=== PATIENT | female | born 1980 | race Caucasian/White ===

== ENCOUNTER 2019-12-20 21:06 | Emergency (ER) | payer OTHER, SELFPAY ==
[2019-12-20 21:18] VITALS: BP 142/86; PULSE 83; RESP 17; TEMP 36.7; O2SAT 98
--- NOTE | 2019-12-20 22:28 | ED.BACK ---
HPI - Back Pain/Injury General Chief Complaint: Back Pain/Injury Stated Complaint: left lower back pain Time Seen by Provider: 12/20/19 21:54 Source: patient Mode of arrival: ambulatory Limitations: no limitations History of Present Illness HPI Narrative: This patient is a 39 year old female who presents for evaluation of left lower back pain . She woke up this morning with this pain. She reports her pain worsens when she walks or bends. She also reports this pain intermittently radiates down her leg. She reports intermittent numbness and tingling. She denies lower extremity weakness. She denies abdominal pain, nausea, vomiting, urinary retention or incontinence. She took ibuprofen 400 mg hours ago. Her pain sitting is 3/10 MD elicited complaint: back pain Pertinent past history: prior back pain Related Data Home Medications Medication Instructions Recorded Confirmed lorazepam [Ativan] 2 mg PO DAILY PRN 12/20/19 12/20/19 omeprazole 20 mg PO DAILY 12/20/19 12/20/19 Allergies Allergy/AdvReac Type Severity Reaction Status Date / Time sulfamethoxazole Allergy Hives Verified 12/20/19 21:37 [From Bactrim] trimethoprim [From Bactrim] Allergy Hives Verified 12/20/19 21:37 Review of Systems Review of Systems: All systems reviewed & are unremarkable except as noted in HPI and below Constitutional: Constitutional: Denies chills and Denies fever(s) Gastrointestinal: Gastrointestinal: Denies abdominal pain, Denies nausea and Denies vomiting Genitourinary: Genitourinary: Denies hematuria, Denies nocturia and Denies vaginal discharge Musculoskeletal: Musculoskeletal: Reports back pain and Reports muscle cramps PMFSH Past Medical History Medical History (Updated 12/21/19 @ 00:07 by Yaneth Edwards MD) Multiple sclerosis Surgical History Surgical History (Updated 12/20/19 @ 22:33 by Yaneth Edwards MD) Hx of tonsillectomy Social History Social History Gender identity (if verbalized by the patient): Female Exam Narrative: Exam Narrative: GENERAL: Well-appearing, well-nourished, and in no acute distress. HEAD: Normocephalic, atraumatic EYES: PERRLA and EOMI, conjunctiva clear without discharge THROAT:Mucous membranes moist, NECK: Supple, without lymphadenopathy or mass RESPIRATORY: No respiratory distress, Airway patent, Respirations non-labored, Clear to auscultation without rales, rhonchi or wheeze HEART: Regular rate and rhythm. No murmur heard. Normal peripheral pulses. ABDOMEN: Soft, nontender, nondistended, normal active bowel sounds. No masses. No rebound or guarding, No organomegaly. EXTREMITIES: No edema, normal strength with full range of motion. SKIN: Warm, dry, normal color without rash NEURO: Alert and oriented x3. CN 2-12 grossly intact. No focal deficits. PSYCH: Normal mood and affect. Course Reevaluation(s) Reevaluation #1: PAtient has no neuro deficits, no leg weakness, no sensory deficity, no urinary retention or in continence Date: 12/21/19 Time: 00:06 Vital Signs Vital signs: Vital Signs Temperature 98.1 F 12/20/19 21:18 Pulse Rate 83 12/20/19 21:18 Respiratory Rate 17 12/20/19 21:18 Blood Pressure 142/86 H 12/20/19 21:18 Pulse Oximetry 98 12/20/19 21:18 Temperature 98.1 F 12/20/19 21:18 Pulse Rate 68 12/20/19 23:51 Respiratory Rate 16 12/20/19 23:51 Blood Pressure 129/74 12/20/19 23:51 Pulse Oximetry 98 12/20/19 23:51 MDM - Back Pain/Injury Lab Data Labs: Lab Results 12/20/19 Range/Units 22:33 Urine Color Yellow (Yellow) Urine Appearance Clear (Clear) Urine pH 6.0 (5.0-9.0) Ur Specific [place] 1.016 (1.001-1.035) Urine Protein Negative (Negative) mg/dL Urine Glucose (UA) Negative (Negative) mg/dL Urine Ketones Negative (Negative) mg/dL Ur Blood (Man) Negative (Negative) Urine Nitrate Negative (Negative) Urine Bilirubin Negative (Negative) Urine Urobilinogen N
[2019-12-20] MEDS: diazePAM 5 MG TABLET PO (22:29)
[2019-12-20] MEDS: KETOROLAC (*BKC) 60 MG/2 ML VIAL IM (22:29)
[2019-12-20] MEDS: methylPREDNISolone SOD SUCC 125 MG VIAL IM (22:30)
[2019-12-20 22:46] LABS: Add Urine Microscopic? YES; Appearance Urine Clear (Clear); Bilirubin Urine Negative (Negative); Blood Urine Negative (Negative); Color Urine Yellow (Yellow); Glucose Urine UA Negative (Negative); Ketones Urine Negative (Negative); Leukocyte Esterase Ur Trace LEU/UL (Negative); Nitrate Urine Negative (Negative); Protein Urine Negative (Negative); RBC Urine 0-2 /hpf (0-2); Specific Grav Ur 1.016 (1.001-1.035); Squamous Epithelial Cell Urine Many /hpf (Few); Urobilinogen Urine Negative mg/dL (<2.0); WBC Urine 0-3 /hpf
--- NOTE | 2019-12-20 23:02 | PC.NURSE ---
Report received, assumed care of patient.
[2019-12-20 23:51] VITALS: BP 129/74; PULSE 68; RESP 16; O2SAT 98
== END 2019-12-21 00:17 | disposition home or self-care (01) ==
PROVIDERS: Emergency Provider General Practice; PCP Family Medicine
DX: M54.16 Radiculopathy, lumbar region (principal); G35 Multiple sclerosis
CPT/HCPCS: 81001; 81025; 96372; 99284; A9270; J1885; J2930

== ENCOUNTER 2020-09-04 12:58 | Emergency (ER) | payer MEDICARE, OTHER, SELFPAY ==
[2020-09-04] VITALS (12 sets, daily range): BP systolic 119–145; BP diastolic 78–94; PULSE 63–84; RESP 14–24; TEMP 36.3; O2SAT 96–99
--- NOTE | ~2020-09-04 | CT_ITS ---
EXAMINATION: CTA brain carotid EXAM DATE: 09/04/2020 15:04 INDICATION: Headache, blurred vision. TECHNIQUE: Noncontrast head CT. Spiral CTA of the carotid arteries was performed with intravenous i njection 100 cc of Omnipaque 350. Axial, coronal, sagittal reformatted images reviewed. Additional r eformatted images created on dedicated 3-D workstation. NASCET comparable standard used to assess th e degree of arterial stenosis. Spiral CT angiogram cerebral arteries performed with the same intrave nous injection of contrast. Source images of the brain CTA transferred to dedicated workstation for 3 -D rotational image creation. Coronal, sagittal maximum intensity pixel images also reviewed. The d ose-length product (DLP) for this examination was 1603.54 mGy-cm. The exposure was tailored accordi ng to patient size, and iterative reconstruction (ASIR) was used as additional dose reduction techniq ue. There is no prior study for comparison. FINDINGS: There is no common or internal carotid arterial plaque, 0% stenosis bilaterally. The verteb ral arteries are codominant. Symmetric ophthalmic arteries and superior orbital veins. There is no ca rotid or vertebral basilar arterial dissection or fibromuscular dysplasia. There are no cerebral simeon ry aneurysms. There is symmetric cerebral artery arborization. The sagittal, transverse and sigmoid s inuses enhance normally, no venous sinus thrombosis. Internal cerebral veins also enhance normally. There is no acute intraparenchymal hemorrhage. No evidence of intraparenchymal brain mass lesion. N o evidence of acute infarction. There is no mass effect or midline shift. There is no obstructive hyd rocephalus suspected. There are no extra-axial collections. There are no calvarial acute fractures. IMPRESSION: 1. No acute carotid or intracranial findings. 2. Bilateral carotid 0% stenosis. Reviewed, dictated and finalized at location A.
--- NOTE | ~2020-09-04 | XR_ITS ---
EXAMINATION: XR chest 2V EXAM DATE: 09/04/2020 13:49 INDICATION: Left-sided chest pain, dizziness. Symptoms started today. TECHNIQUE: Frontal and lateral projections of the chest obtained and reviewed. There is no prior aiyana dy for comparison. FINDINGS: The lungs are clear. There are no pleural effusions. The cardiomediastinal silhouette is within normal limits. There is no pneumothorax suspected. The bones and soft tissues are unremarkab le. IMPRESSION: No acute cardiopulmonary findings. Reviewed, dictated and finalized at location A.
--- NOTE | 2020-09-04 13:08 | ECG_ITS ---
Measurements Intervals [place] Rate: 70 P: 30 IA: 144 QRS: 17 QRSD: 96 T: 30 QT: 406 QTc: 441 Interpretive Statements SINUS RHYTHM BASELINE ARTIFACT- II, III, AVR, AVF, V2-V6 NORMAL ECG Electronically Signed On 09-04-2020 17:18:15 CDT by Denver Grossman D.O.
[2020-09-04 13:33] LABS: Basophils Percent Auto 0.4 % (0.2-1.2); Eosinophils Absolute Auto 0.3 K/mm3 (0-0.3); Eosinophils Percent Auto 2.7 % (0-4.4); Hematocrit 43.9 % (37.0-47.0); Hemoglobin 15.3 g/dL (12.0-15.0); Immature Granulocyte Absolute 0.02 K/mm3 (0.00-0.031); Immature Granulocyte Percent A 0.2 % (0-0.5); Lymphocytes Absolute Auto 3.72 K/mm3 (0.9-3.2); Lymphocytes Percent Auto 39.8 % (18.3-44.2); Mean Corpuscular HGB Conc 34.9 g/dl (32-36); Mean Corpuscular Hemoglobin 29.5 pg (26-34); Mean Corpuscular Volume 84.6 fl (80-100); Mean Platelet Volume 10.2 fl (7.4-10.4); Monocytes Absolute Auto 0.5 K/mm3 (0.1-0.6); Monocytes Percent Auto 5.2 % (2.6-8.5); Neutrophils Absolute Auto 4.8 K/mm3 (1.3-6.7); Neutrophils Percent Auto 51.7 % (45.5-73.1); Platelet Count Result 263 k/mm3 (150-375); Red Blood Count 5.19 M/mm3 (4.2-5.4); White Blood Count 9.3 K/mm3 (4.5-10.0)
[2020-09-04 13:44] LABS: Anion Gap 7 mmol/L (8-16); Blood Urea Nitrogen 8 mg/dL (7-17); Calcium 9.4 mg/dL (8.4-10.2); Carbon Dioxide 27 mmol/L (22-30); Chloride 106 mmol/L (98-107); Estimated CRCL calculation 117 ml/min; Estimated Glomerular Filt Rate > 60; Glucose 127 mg/dL (65-105); INR 0.8; Potassium 3.7 mmol/L (3.4-5.0); Prothrombin Time 11.7 Seconds (11.1-14.7); Sodium 140 mmol/L (137-145)
[2020-09-04 13:45] LABS: Partial Thromboplastin Time 29.2 SECONDS (22.3-36.8)
[2020-09-04 13:54] LABS: Troponin I < 0.012 ng/mL (0.000-0.034)
[2020-09-04] MEDS: SODIUM CHLORIDE 0.9% IV 1,000 ML 999 ML IV CONT (14:12)
[2020-09-04] MEDS: METOCLOPRAMIDE HCL INJ 10 MG/2 ML VIAL IV PUSH (14:12)
[2020-09-04] MEDS: diphenhydrAMINE HCl INJ 50 MG/ML VIAL 25 MG IV PUSH (14:14)
--- NOTE | 2020-09-04 14:25 | ED.GENADULT ---
HPI - General Adult General Chief complaint: Chest Pain Stated complaint: left chest pressure and left eye trouble Time Seen by Provider: 09/04/20 13:26 Source: patient Mode of arrival: EMS Limitations: no limitations History of Present Illness HPI narrative: This patient is a 40 year old female with history of Multiple sclerosis who presents for evaluation left axillary pain and headache. Patient states she developed sudden onset of left axilla pressure, and left eye visual defect. She then developed left frontal headache and left midback pain. She describes her left axilla pain as pressure. She also describes her headache as if someone is pulling on left side of her headache. She states she feels as if part of her vision is missing on left lower with flashes of light. She denies focal weakness but she reports left leg numbness that has been present for 1 month. She states she has not had a relapse of MS in 5 years. Related Data Home Medications Medication Instructions Recorded Confirmed lorazepam [Ativan] 2 mg PO DAILY PRN 12/20/19 12/20/19 omeprazole 20 mg PO DAILY 12/20/19 12/20/19 Allergies Allergy/AdvReac Type Severity Reaction Status Date / Time sulfamethoxazole Allergy Hives Verified 12/20/19 21:37 [From Bactrim] trimethoprim [From Bactrim] Allergy Hives Verified 12/20/19 21:37 Review of Systems Review of Systems: All systems reviewed & are unremarkable except as noted in HPI and below Constitutional: Constitutional: Denies chills and Denies fever(s) ENT: Denies sore throat Comments: left eye blurred vision Cardiovascular: Cardiovascular: Reports chest pain Respiratory: Respiratory: Denies cough and Denies dyspnea Gastrointestinal: Gastrointestinal: Denies abdominal pain, Denies diarrhea, Denies nausea and Denies vomiting Musculoskeletal: Musculoskeletal: Reports back pain Neurologic: Reports headache(s), Denies focal weakness and Reports numbness (left lower leg) [facility] Past Medical History Medical History (Updated 09/04/20 @ 16:39 by Yaneth Edwards MD) Multiple sclerosis Surgical History Surgical History (Updated 12/20/19 @ 22:33 by Yaneth Edwards MD) Hx of tonsillectomy Social History Social History Gender identity (if verbalized by the patient): Female Exam Const: General: no acute distress and alert Orientation/consciousness: patient oriented x3 HENMT: Head: normocephalic and atraumatic Ears: TM's normal bilaterally Face and sinus: sinuses nontender and face symmetric Mouth: Yes Normal oral and palatal mucosa present, Yes lip normal, Yes oropharynx normal and Yes moist mucous membranes Eyes: Conjunctivae: conjunctivae normal Pupils: Equal, round and reactive pupils present EOM: EOMs intact bilaterally Other: visual acuity- 20/40 right 20/80 left, visual field defect left lower; IOP 21 right, 23 left Chest: Chest palpation & inspection: normal inspection of the chest Resp: Effort & Inspection: normal respiratory effort and no retractions Auscultation: clear to auscultation bilaterally Cardio: Rate: regular rate Rhythm: regular rhythm Heart sounds: no murmurs GI: GI Palp: Yes Soft to palpation, No Tenderness to palpation present (GI) and No Guarding due to palpation present (GI) Auscultation: normal bowel sounds Skin: General skin exam: normal color Rashes: no rashes Neuro: General: patient oriented x3, moves all extremities, no focal motor deficits and CN's II-XI intact bilaterally Cranial nerves: Yes Nystagmus not present Speech: normal speech Psych: Mental Status: mental status grossly normal Affect: normal affect Course Reevaluation(s) Reevaluation #1: PAtient states her headache and chest pain have resolved. She still continues to have some left eye blurred vision; I Discussed we do not have ophthalmology available so they are agreeable to possible transfer Date: 09/04/20 Time: 16:07 Consultations Consultation #1: Diony Mercedes
--- NOTE | 2020-09-04 14:48 | PC.NURSE ---
Pt states headache is gone, and she feels sleepy. Pt states is post-menopausal x5 yrs due to her MS. CT made aware.
--- NOTE | 2020-09-04 14:57 | PC.NURSE ---
Pt to CT via stretcher.
--- NOTE | 2020-09-04 16:03 | PC.NURSE ---
Preparing to transfer patient to [facility] for opthalmology.
--- NOTE | 2020-09-04 16:42 | PC.NURSE ---
[facility] declined transfer to [facility] accepted transfer to [facility] ETA 1.5hr Trip # [phone]
[2020-09-04 17:03] LABS: Troponin I < 0.012 ng/mL (0.000-0.034)
--- NOTE | 2020-09-04 17:36 | PC.NURSE ---
[facility] updated ETA [id number]
--- NOTE | 2020-09-04 18:00 | PC.NURSE ---
Assumed care of pt. at this time. Report from BRODERICK Abraham
== END 2020-09-04 18:15 | disposition short-term general hospital (02) ==
PROVIDERS: Emergency Provider General Practice; PCP Family Medicine
DX: R51.9 Headache, unspecified (principal); R07.89 Other chest pain; H54.7 Unspecified visual loss; G35 Multiple sclerosis
CPT/HCPCS: 36415; 70496; 70498; 71046; 80048; 84484; 85025; 85610; 85730; 93005; 96361; 96374; 96375; 99284; 99285; J1200; J2765; J7030; Q9967

== ENCOUNTER 2023-03-03 17:31 | Emergency (ER) | payer MEDICARE, OTHER, SELFPAY ==
[2023-03-03 17:46] VITALS: BP 140/90; PULSE 76; RESP 16; TEMP 36.6; O2SAT 98
--- NOTE | 2023-03-03 18:07 | ED.URI ---
HPI - URI/Sore Throat General Chief Complaint: Upper Respiratory Infection Stated Complaint: COUGH/SORE THROAT/COLD SYMPTOMS Time Seen by Provider: 03/03/23 18:07 Source: patient, RN notes reviewed and old records reviewed Mode of arrival: ambulatory Limitations: no limitations History of Present Illness HPI Narrative: 42-year-old female presents to the [facility] with complaints of cold symptoms, cough. States been going on for 1 week. Has tested negative her doctor's office for COVID x2 Has taken DayQuil Related Data Home Medications Medication Instructions Recorded Confirmed lorazepam 2 mg tablet (Ativan) 2 mg PO DAILY PRN Anxiety 12/20/19 03/03/23 omeprazole 20 mg tablet,delayed 20 mg PO DAILY 12/20/19 03/03/23 release ergocalciferol (vitamin D2) 1,250 1,250 mcg PO WEEKLY 03/03/23 03/03/23 mcg (50,000 unit) capsule rosuvastatin 10 mg tablet 10 mg PO DAILY 03/03/23 03/03/23 Allergies Allergy/AdvReac Type Severity Reaction Status Date / Time sulfamethoxazole Allergy Hives Verified 03/03/23 17:42 [From Bactrim] trimethoprim [From Bactrim] Allergy Hives Verified 03/03/23 17:42 Review of Systems Review of Systems: All systems reviewed & are unremarkable except as noted in HPI and below Constitutional: Constitutional: Reports no additional constitutional complaints Eyes: Eyes: Reports no additional eye complaints ENT: Reports as per HPI Cardiovascular: Cardiovascular: Reports no additional cardiovascular complaints, Denies chest pain and Denies dyspnea Respiratory: Respiratory: Reports as per HPI, Denies chest congestion, Reports cough and Denies dyspnea Gastrointestinal: Gastrointestinal: Reports no additional gastrointestinal complaints, Denies abdominal pain, Denies nausea and Denies vomiting Musculoskeletal: Musculoskeletal: Reports no additional musculoskeletal complaints Integumentary/Breasts: Skin/Breast: Reports system reviewed and no additional complaints, except as docu Neurologic: Reports system reviewed and no additional complaints, except as documented Psychiatric: Psychiatric: Reports no additional psychiatric complaints Allergic/Immunologic: Allergic/Immunologic: Reports no additional allergic/immunologic complaints PMFSH Past Medical History Medical History Multiple sclerosis Surgical History Surgical History Hx of tonsillectomy Social History Social History Gender identity (if verbalized by the patient): Female Comments At the time of my signature, I reviewed and agree with the nursing past medical, surgical, social, and family history. There is no relevant family history pertinent to the patient complaint. Exam Const: General: cooperative, healthy appearing, comfortable, no acute distress, well developed, alert and well nourished Nutritional Appearance: well nourished and obese Orientation/consciousness: patient oriented x3 Limitations: no limitations HENMT: Head: normal to inspection Ears: hearing grossly normal bilaterally, external ears normal, TM's normal bilaterally and EAC's normal Face/Nose/Sinus: Normal external nose present, Normal nares present, Normal nasal mucous membranes and turbinates present, No nasal discharge present, normal facial exam, face symmetric and No ecchymosis Face and sinus: normal facial exam, face symmetric and sinus tenderness frontal and maxillary Mouth: Yes Normal oral and palatal mucosa present, Yes lip normal and Yes moist mucous membranes Throat: posterior oropharynx normal and uvula midline Eyes: General: appearance normal, both eyes and all related structures Alignment and Position: alignment normal Periorbital: periorbital findings normal Pupils: Equal, round and reactive pupils present EOM: EOMs intact bilaterally Neck: Neck: normal visual inspection, full
== END 2023-03-03 18:24 | disposition home or self-care (01) ==
PROVIDERS: Emergency Provider Nurse Practitioner; PCP Family Medicine
DX: J40 Bronchitis, not specified as acute or chronic (principal); J32.9 Chronic sinusitis, unspecified; G35 Multiple sclerosis
CPT/HCPCS: 99213; G0463

== ENCOUNTER 2023-05-19 08:34 | Emergency (ER) | payer MEDICARE, OTHER, MEDICAID, SELFPAY ==
[2023-05-19] VITALS (13 sets, daily range): BP systolic 127–155; BP diastolic 75–98; PULSE 67–89; RESP 13–20; O2SAT 95–99
--- NOTE | ~2023-05-19 | CT_ITS ---
EXAMINATION: CT brain wo con DATE: 05/19/2023 09:25 INDICATION: Headache. TECHNIQUE: Computed tomography (CT) of the head was performed without intravenous contrast. The mA wa s adjusted according to patient size. Iterative reconstruction technique was employed. The dose-lengt h product was 605.33 mGy-cm. COMPARISON: Head CTA 09/04/2020 FINDINGS: There is no intracranial hemorrhage, acute infarction, or abnormal intracranial mass lesion . The ventricles are normal in size. The orbits are normal. There is mild mucosal thickening in the p aranasal sinuses. The mastoid air cells are normal. The orbits are normal. IMPRESSION: 1. Normal brain. Reviewed, dictated and finalized at location A. 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 Normal brain.
--- NOTE | 2023-05-19 09:10 | ED.GENADULT ---
HPI - General Adult General Chief complaint: Recheck/Abnormal Lab/Rx Stated complaint: head pressure/htn Time Seen by Provider: 05/19/23 08:54 History of Present Illness HPI narrative: 43-year-old female presenting to the emergency department for evaluation headache. 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 Patient denies any nausea vomiting chest pain shortness of breath numbness or weakness. Related Data Home Medications Medication Instructions Recorded Confirmed lorazepam 2 mg tablet (Ativan) 2 mg PO DAILY PRN Anxiety 12/20/19 03/03/23 omeprazole 20 mg tablet,delayed 20 mg PO DAILY 12/20/19 03/03/23 release ergocalciferol (vitamin D2) 1,250 1,250 mcg PO WEEKLY 03/03/23 03/03/23 mcg (50,000 unit) capsule rosuvastatin 10 mg tablet 10 mg PO DAILY 03/03/23 03/03/23 Allergies Allergy/AdvReac Type Severity Reaction Status Date / Time sulfamethoxazole Allergy Hives Verified 05/19/23 09:04 [From Bactrim] trimethoprim [From Bactrim] Allergy Hives Verified 05/19/23 09:04 Review of Systems Review of Systems: All systems reviewed & are unremarkable except as noted in HPI and below PMFSH Past Medical History Medical History Multiple sclerosis Surgical History Surgical History Hx of tonsillectomy Social History Social History Gender identity (if verbalized by the patient): Female Exam Narrative: APPEARANCE: Well appearing, no pain, no distress, well-nourished. HEAD: normocephalic, atraumatic. EYES: PERRLA/EOMI, conjunctivae clear. NOSE: Normal no drainage EARS:TMS clear with good light reflex. THROAT: Pharynx clear, no exudate. NECK: Supple. No adenopathy, no masses. RESPIRATORY: Airway patent, respirations nonlabored. Clear to auscultation bilaterally, no rales, rhonchi, wheezing. CARDIOVASCULAR: Regular rate and rhythm without murmurs rubs or gallops. ABDOMINAL: Soft, nontender, nondistended, normal bowel sounds MUSCULOSKELETAL: Moves all extremities. Strength/ROM intact, No edema, No calf tenderness. NEURO: Alert. Cranial nerves II through XII intact. Grossly intact SKIN: Warm, dry. Normal Color Course Course Emergency Course: 43-year-old female present to the ED for headache. Patient had a negative head CT. Patient was afebrile with no leukocytosis patient's hemoglobin 15.2. No significant abnormalities on her CMP. Patient was negative influenza RSV and for COVID. Patient did feel improved with treatment feels back to baseline. Patient did feel improved with treatment and patient was requesting discharge to home. Suspect migraine. Low concern for intracranial abnormality or CVA. Patient family were updated on the results of the workup and diagnosis. All questions concerns were addressed patient was well-appearing at time of discharge. Vital Signs Vital signs: Vital Signs Pulse Rate 86 05/19/23 08:53 Respiratory Rate 13 05/19/23 08:53 Pulse Oximetry 99 05/19/23 08:53 Pulse Rate 67 05/19/23 10:33 Respiratory Rate 20 05/19/23 10:33 Blood Pressure 127/76 05/19/23 10:16 Pulse Oximetry 95 05/19/23 10:33 Medical Decision Making Differential Diagnosis Differential Diagnosis: CVA, TIA, migraine, intracranial bleed, muscle strain Vital Signs Vital Signs: Vital Signs Pulse Rate 86 05/19/23 08:53 Respiratory Rate 13 05/19/23 08:53 Pulse Oximetry 99 05/19/23 08:53 Pulse Rate 67 05/19/23 10:33 Respiratory Rate 20 05/19/23 10:33 Blood Pressure 127/76 05/19/23 10:16 Pulse Oximetry 95 05/19/23 10:33 Lab Data Lab results reviewed: Yes I reviewed the patient's lab results. 05/19/23 09:34 05/19/23 09:34 Labs:
[2023-05-19] MEDS: SODIUM CHLORIDE 0.9% IV 1,000 ML 999 ML IV CONT (09:30)
[2023-05-19] MEDS: diphenhydrAMINE HCl INJ 50 MG/ML VIAL 25 MG IV PUSH (09:30)
[2023-05-19] MEDS: PROCHLORPERAZINE EDISYLATE 10 MG/2 ML VIAL IV PUSH (09:30)
[2023-05-19 09:40] LABS: Basophils Percent Auto 0.4 % (0.2-1.2); Eosinophils Absolute Auto 0.1 K/mm3 (0-0.3); Eosinophils Percent Auto 1.2 % (0-4.4); Hematocrit 44.1 % (37.0-47.0); Hemoglobin 15.2 g/dL (12.0-15.0); Immature Granulocyte Absolute 0.06 K/mm3 (0.00-0.031); Immature Granulocyte Percent A 0.8 % (0-0.5); Lymphocytes Percent Auto 39.3 % (18.3-44.2); Mean Corpuscular HGB Conc 34.5 g/dl (32-36); Mean Corpuscular Hemoglobin 29.6 pg (26-34); Mean Corpuscular Volume 85.8 fl (80-100); Mean Platelet Volume 9.9 fl (7.4-10.4); Monocytes Absolute Auto 0.4 K/mm3 (0.1-0.6); Monocytes Percent Auto 5.8 % (2.6-8.5); Neutrophils Absolute Auto 3.9 K/mm3 (1.3-6.7); Neutrophils Percent Auto 52.5 % (45.5-73.1); Platelet Count Result 225 k/mm3 (150-375); Red Blood Count 5.14 M/mm3 (4.2-5.4); Red Cell Distribution Width 11.9 % (11.5-14.5); White Blood Count 7.4 K/mm3 (4.5-10.0)
[2023-05-19] MEDS: KETOROLAC 15 MG/ML VIAL (*BKC) IV PUSH (09:51)
[2023-05-19 09:59] LABS: Alanine Aminotransferase 22 U/L (6-35); Albumin Level 4.7 g/dL (3.5-5.1); Alkaline Phosphatase 93 U/L (38-126); Anion Gap 9 mmol/L (8-16); Aspartate Amino Transferase 22 U/L (14-36); Bilirubin,Total 0.7 mg/dL (0.2-1.3); Blood Urea Nitrogen 10 mg/dL (7-17); Calcium 9.6 mg/dL (8.4-10.2); Carbon Dioxide 25 mmol/L (22-30); Chloride 106 mmol/L (98-107); Estimated CRCL calculation 131 ml/min; Estimated Glomerular Filt Rate > 60; Glucose 117 mg/dL (65-110); Potassium 3.9 mmol/L (3.4-5.0); Sodium 140 mmol/L (137-145)
[2023-05-19 10:17] LABS: Influenza A QL RT-PCR Negative (Negative); Influenza B QL RT-PCR Negative (Negative); RSV RNA, RT-PCR Negative (Negative); SARS-CoV-2 RNA PCR Negative (Negative)
== END 2023-05-19 10:53 | disposition home or self-care (01) ==
PROVIDERS: Emergency Provider Emergency Medicine; PCP Family Medicine
DX: R51.9 Headache, unspecified (principal); Z20.822 Contact with and (suspected) exposure to COVID-19; G35 Multiple sclerosis
CPT/HCPCS: 36415; 70450; 80053; 85025; 87637; 96361; 96374; 96375; 99284; J0780; J1200; J1885; J7030